=== PATIENT | male | born 1955 | race Caucasian/White ===

== ENCOUNTER 2016-06-24 05:25 | Day surgery (SDC) | payer OTHER ==
[~2016-06-24] VITALS: Ht 167.6 cm; Wt 102.1 kg
--- NOTE | ~2016-06-24 | O ---
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 PROCEDURE PERFORMED: 1. Excisional debridement of sacrococcygeal pressure ulcer with Misonix. 2. Excisional debridement of scrotal pressure ulcers with Misonix. 3. Diverting loop colostomy. ANESTHESIA: General endotracheal anesthesia. SURGEON: Miguel Shabazz MD. WAREHOUSE TRAINER: Anita Dye, Medical Student. ESTIMATED BLOOD LOSS: 125 mL. INTRAVENOUS FLUIDS: See anesthesia record. SPECIMENS TO PATHOLOGY: 1. Culture and sensitivity from coccygeal wound. 2. Coccygeal wound tissue. 3. Scrotal wound edge. FINDINGS: 1. Sacrococcygeal wound before debridement measured 2.5 x 3.75 x 2 cm deep; post-excisional debridement, it measured 6 x 6 x 9 cm. Of note that wound connected to a tract, which tunneled deeply toward the coccyx that had been covered by a skin bridge but which had a pocket of fibrinopurulent material. This was opened to allow wound care to be performed in the attempt to heal this region. This tracked near to the rectum and did not directly involve the rectum itself. 2. Central scrotal wound pre-excision measured 3.5 x 2.5 x 0.75; post-debridement, this measured 4.5 x 3 x 0.75 cm. Right scrotal wound [address] [address] OPERATIVE REPORT Name: MIGUEL CARUSO Room #: [facility] Tj.#: [id number] Admission: 06/24/16 Attend Phys: Miguel Shabazz MD Discharge: 06/24/16 Date of : 57 Report #: [id number] pre-excisional debridement measured 3.5 x 2 x 0.5 and subsequently measured 3.5 x 2 x 0.5 cm. Misonix debridement was used on each of the scrotal wounds, which were side by side. 3. A transverse loop colostomy was performed with a bridge and this was matured using 3-0 PDS. Digital palpation showed that both the proximal and distal lumens were widely patent. This was placed at the upper midline. INDICATION FOR PROCEDURE: The patient is a 60-year-old male patient with unfortunate history of chronic debility following extensive hospitalization after a urology procedure sometime ago. He developed lower extremity lymphedema with cellulitis and chronic inability to ambulate on his own. He developed subsequent pressure ulcers in the thoracic spine and the sacrococcygeal region. The thoracic spine wound is being managed well by wound care. The sacrococcygeal wound was noted to track too deeply to be debrided at the bedside with the patient awake; therefore, General Surgery was consulted for operative debridement in the OR setting as well as diverting loop colostomy to prevent further spillage of incontinent stools on this wound, which was giving chronic contamination and infection. Detailed discussion of the risks and benefits of the procedure was held with the patient and all questions were answered to his satisfaction. Written informed consent was obtained. DESCRIPTION OF PROCEDURE: The patient was brought to the operating room and placed in a supine position. Timeout was taken to verify the patient's identity and to plan the procedure. SCDs were in place on the lower extremities bilaterally. Preoperative antibiotics were administered. Anesthesia was induced. The patient was intubated. The patient was placed in the prone position. The sacrococcygeal and scrotum were sterilely prepped and draped in standard fashion. Wounds were measured. The sacrococcygeal pressure ulcer was measured initially at 2.5 x 3.75 x 2 cm deep. At the inferior aspect of this, there was a tunnel that was noted with a skin bridge connecting to a deeper tract near to the anal verge. The scrotal wounds were measured and the central wound was noted to be 3.5 x 2.5 x 0.75 cm and the right-sided scrotal wound measured 3.5 x 2 x 0.5 cm. The sacrococcygeal wound was addressed initially and this was debrided sharply with a 10 blade removing a significant amount of fibrinopurulent material and sclerotic tissue circumferentially and at the base of the wound. This was debrided sharply down to tissue, which oozed bright red blood, indicating that it was viable. The base of the wound in the soft tissue that was removed was passed off as coccygeal wound. Inferiorly, there was a deep pocket tracking toward the anus that was covered with a skin bridge but which contained a substantial amount of fibrinopurulent material. The skin was opened using electrocautery to allow access to this region. This was then debrided sharply along the base of that fibrinopurulent material. Care was taken to avoid the anus and rectum and sphincteric complex was palpated digitally to ensure that the debridement did not involve the anus and rectum itself. Once the tissue had been debrided sharply down to tissue, which oozed bright red blood indicating it was viable. Misonix ultrasonic debridement was [facility] [address] [place] [address] OPERATIVE REPORT Name: MIGUEL CARUSO Room #: [facility]P [facility] Albert#: [id number] Admission: 06/24/16 Attend Phys: Miguel Shabazz MD Discharge: 06/24/16 Date of : 57 Report #: [id number] utilized to clean the wound bed and the wound edges as well. The wound was then packed with Betadine soaked Kerlix gauze with care to pack the tunnel which tracked deeply down toward the coccyx itself. Following the excisional debridement and Misonix debridement, this sacrococcygeal wound measured 6 cm x 6 cm x 9 cm in maximal dimensions. The scrotal wounds were then addressed. The more central scrotal wound was debrided sharply of some fibrinous material. Initially, this measured 3.5 x 2.5 x 0.75. Subsequent to excisional debridement, it measured 4.5 x 3 x 0.75 cm. Misonix debridement was utilized as well. Tissue was debrided back to viable appearing tissue, which oozed bright red blood. Similarly just to the right of the midline, the scrotal wound measured 3.5 x 2 x 0.5 and the dimensions were changed following debridement of the edges sharply as well as using Misonix debridement. This wound was also packed with Betadine soaked Kerlix gauze and covered with sterile dressing. The patient was then placed in the supine position and the abdomen was sterilely prepped and draped in standard fashion after the arms were tucked and protected. Upper midline incision was made of approximately 4 cm in length using a 10 blade. After local anesthetic had been infiltrated, careful dissection down to the linea alba was performed using electrocautery and blunt dissection with a Arti clamp. The fascia was grasped and retracted anteriorly. The fascia was opened in the midline and peritoneum was opened with Metzenbaum scissors. A digital palpation showed that no obvious adhesions were located at this region and the fascia was opened to approximately 3-4 cm at this site. A loop of transverse colon was easily visualized and brought up through this opening. This was then anchored in place using a T-bar which was anchored to the anterior abdominal wall skin with 2-0 nylon interrupted sutures. The transverse colon was then opened along the tinea using electrocautery and Metzenbaum scissors. The colostomy was then matured using 3-0 PDS running and interrupted sutures circumferentially. Digital palpation showed that the proximal and distal lumens were patent and a colostomy appliance was then cut to proper size and shape and affixed to the anterior abdominal wall skin with a good seal. Hemostasis was carefully verified using electrocautery throughout this process and return of liquid stool material was visualized. At this point, the case was ended. All instrumentation had been extracted and accounted for. All counts were correct per nurse report. The patient was extubated and taken to the postoperative care unit in stable condition. <ELECTRONICALLY SIGNED> By: Miguel Shabazz MD 06/26/16 0646 [id number] 1623 Miguel Shabazz MD /wendi
--- NOTE | ~2016-06-24 | EKG ---
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
--- NOTE | ~2016-06-24 | S ---
[facility] [place] [address] SURGICAL PATH RPT PROCEDURE Name: MIGUEL MARROQUIN [id number] Admission: 06/24/16 Date of : 57 Discharge: 06/24/16 Report #: [id number] Path Case #: [id number] PATHOLOGY REPORT COLLECTION DATE: 06/24/2016 RECEIVED DATE: 06/25/2016 SUBMITTING PHYS: Dr. Miguel Shabazz OTHER PHYS: Dr. Shamika Stovall SPECIMEN(S) RECEIVED: A.Scrotal wound edge B.Coccygeal wound edge * * * * * * * * * * * * FINAL DIAGNOSIS: A. "Scrotal wound edge", debridement: - Skin and subcutaneous tissue with reactive changes, fibrosis, predominantly chronic inflammation and pseudoepitheliomatous hyperplasia. B. "Coccygeal wound edge", debridement: - Skin and subcutaneous tissue with acute and chronic inflammation, necrosis, granulation tissue fibrosis, fat necrosis and pseudoepitheliomatous hyperplasia. (CLW; 06/26/16) PATHOLOGIST: Akiko Merino M.D. REPORT ELECTRONICALLY SIGNED BY: Akiko Merino M.D. DATE/TIME: 06/26/2016 21:57 * * * * * * * * * * * * GROSS PATHOLOGY: A. The specimen is received in formalin labeled "Miguel Marroquin, scrotum edge". Received is a segment of pink-vega skin measuring 1.2 x 0.6 x 0.3 cm in greatest dimensions. The surgical margin is inked. The specimen is bisected and entirely submitted in cassette A1. B. The specimen is received in formalin labeled "Miguel Marroquin, coccygeal wound edge". Received are multiple segments of dusky pink-vega tubulo-le necrotic-appearing soft tissue measuring 6.2 x 5.8 x 1.2 cm in aggregate dimensions. The specimen is submitted representatively in cassette B1. (CAA; 06/25/2016) CLINICAL HISTORY: Sacral wound [address] [address] SURGICAL PATH RPT PROCEDURE Name: MIGUEL MARROQUIN Room #: [facility] M.Olena.#: [id number] Admission: 06/24/16 Date of : 57 Discharge: 06/24/16 Report #: [id number] Path Case #: [id number] INITIAL CPT CODE(S): A; 40936 B; 11016 Professional services performed by [facility] at [address] , [place] [address] Technical services performed by [facility] at [address] [place] [address], [place] [address]. [facility] [address] [place] [address] PHONE: [phone] DIRECTOR: Waylon Pedraza M.D. * * * END OF REPORT * * *
[~2016-06-24 05:25] MED LIST: ACCUNEB SO1.25 MG/1 INH; ALDACTONE25 MG; ASPIRIN81 M2 PO; ATROVENT30 ML; BACTRIM DS TAB1 EACH PO; BACTROBAN15 GM; BENADRYL25 MG; CALCIUM 500 +1 EAC5 PO; CARAFATE 1 GM TA1 G1 PO; CARVEDILOL12.5 MG PO; CLARITIN10 MG PO; CLONIDINE HCL0.2 M2; CORTISPORIN OTI10 ML; ERAXIS IV; EXCEDRIN CAPLE1 EACH; FLONASE 0.05%50 MCG; FLONASE 0.05%50 MCG NASAL; FUROSEMIDE 80 M80 M1; GABAPENTIN 100100 MG PO; GAS RELIEF 8080 MG PO; HYDRALAZINE 2525 M1; HYDROCODON-ACE1 EAC5; IPRAT-ALBUT 0.5-3 ML INH; IRON325 PO; LEVEMIR; LEVEMIR SUBQ; LIDODERM 5%1 PATC1 TRANSDERM; LOMOTIL TABLET1 EACH PO; LOTRIMIN30 GM; MIRALAX255 GM PO; MUCINEX TA600 MG/TA2 PO; MURINE EAR DROP15 ML OTIC; MYCAMINE100 MG IV; NEOSPORIN OINTM15 GM TOP; NORCO 10-325 T1 EACH PO; NOVOLOG100 UNIT/1; NOVOLOG100 UNIT/1 SUBQ; NYSTATIN 1100000 U/M; NYSTATIN 1100000 U/M PO; OXYCODONE HCL 55 MG PO; PEPTO-BISMOL1 TAB PO; PIPERACIL-TAZ2.25 GM IVPB; PROBIOTIC1 EAC1 PO; PROTONIX40 M1 PO; PURELAX510 GM; REGLAN 10 MG TA10 MG PO; REQUIP0.5 MG PO; SALINE NASAL SP30 ML NASAL; SENOKOT TO GO8.6 MG; SINGULAIR 10 MG10 M1 PO; SODIUM BICARBO650 M3 PO; SODIUM CHLORID250 ML IV; SUPER B COMPLE1 EAC2 PO; SYMBICORT160 MCG/4.; THEREMS1 EAC1 PO; TOPROL XL100 MG; TUMS E.S.750 MG; TUMS PO; TYLENOL325 MG PO; VAN500AD PO; VANCOMYCIN1.25 GM/21 IVPB; VITAMIN B-1000 MCG/2; VITAMIN D 5050000 I1; VITAMINC500 PO; VOLTAREN GEL 1100 G2 TOP; XOPENEX 0.63 MG/3 M1 INH
[2016-06-24 09:30] VITALS: BP 133/69
[2016-06-24 10:21] LABS: HEMATOCRIT 29.4 % (42.0-52.0); HEMOGLOBIN 9.8 gm/dL (14.0-18.0)
== END 2016-06-24 16:40 ==
LOC: TBA 05:25 → OR 05:25
PROVIDERS: Otolaryngology
DX: R53.81 Other malaise (principal); L89.153 Pressure ulcer of sacral region, stage 3; I10 Essential (primary) hypertension; G47.33 Obstructive sleep apnea (adult) (pediatric); I73.89 Other specified peripheral vascular diseases; K21.9 Gastro-esophageal reflux disease without esophagitis; E11.9 Type 2 diabetes mellitus without complications; J44.9 Chronic obstructive pulmonary disease, unspecified; Z93.6 Other artificial openings of urinary tract status; E78.5 Hyperlipidemia, unspecified
CPT/HCPCS: 50010; 50101; 50386; 50403; 53353; 53354; 56525; 62110; 62900; 70005